=== PATIENT | male | born 1950 | race Caucasian/White ===

== ENCOUNTER → 2017-03-11 | Outpatient (CLI) | payer MEDICARE, BC | END | disposition home or self-care (01) | LOC: CFH 13:43 | PROVIDERS: ATTEND Internal Medicine Cardiovascular Disease | DX: I08.1 Rheumatic disorders of both mitral and tricuspid valves (principal); I48.0 Paroxysmal atrial fibrillation; I10 Essential (primary) hypertension; E78.5 Hyperlipidemia, unspecified | CPT/HCPCS: 93306 ==

== ENCOUNTER → 2018-03-17 | Outpatient (CLI) | payer MEDICARE, BC | LOC: CVU 14:52 | PROVIDERS: ATTEND Internal Medicine Cardiovascular Disease | DX: I51.7 Cardiomegaly (principal); I71.9 Aortic aneurysm of unspecified site, without rupture | CPT/HCPCS: 93306 ==

== ENCOUNTER → 2019-03-23 | Outpatient (CLI) | payer MEDICARE, BC | END | disposition home or self-care (01) | LOC: CFH 09:41 | PROVIDERS: ATTEND Internal Medicine Cardiovascular Disease | DX: I08.0 Rheumatic disorders of both mitral and aortic valves (principal); I48.0 Paroxysmal atrial fibrillation; I71.9 Aortic aneurysm of unspecified site, without rupture; I10 Essential (primary) hypertension; E78.5 Hyperlipidemia, unspecified | CPT/HCPCS: 93306 ==

== ENCOUNTER → 2020-04-25 | Outpatient (CLI) | payer MEDICARE, BC | END | disposition home or self-care (01) | LOC: CFH 10:06 | PROVIDERS: ATTEND Internal Medicine Cardiovascular Disease | DX: I35.8 Other nonrheumatic aortic valve disorders (principal); I71.9 Aortic aneurysm of unspecified site, without rupture | CPT/HCPCS: 93306 ==

== ENCOUNTER → 2021-05-17 | Outpatient (CLI) | payer MEDICARE, BC ==
[~2021-05-17] MED LIST: ATOR20TA PO; FINA5TAB4 PO; Fish oil PO; LOSA25TA25 PO; OMNIPAQUE 350 MG/ML, 150 ML BOTTLE ONE; SILO8CAP6 PO
== END | disposition home or self-care (01) ==
LOC: CFH 14:16
PROVIDERS: ATTEND Internal Medicine Cardiovascular Disease
DX: I48.0 Paroxysmal atrial fibrillation (principal); I71.9 Aortic aneurysm of unspecified site, without rupture; R00.1 Bradycardia, unspecified
CPT/HCPCS: 71046; 75572; Q9967

== ENCOUNTER 2021-05-19 10:14 | Observation (INO) | payer MEDICARE, BC ==
[~2021-05-19] VITALS: Ht 182.9 cm; Wt 85.2 kg
[2021-05-19 11:42] VITALS: BP 155/86
[2021-05-19] MEDS ORDERED: FENTANYL PF 250 MCG/5ML ONE (11:43)
[2021-05-19] MEDS ORDERED: MIDAZOLAM 1 MG/ML, 2ML ONE (11:43)
[2021-05-19] MEDS ORDERED: FINA5TAB4 PO (11:48)
[2021-05-19] MEDS ORDERED: ATOR20TA PO (11:48)
[2021-05-19] MEDS ORDERED: LOSA25TA25 PO (11:48)
[2021-05-19] MEDS ORDERED: SILO8CAP6 PO (11:48)
[2021-05-19] MEDS ORDERED: Fish oil PO (11:48)
[2021-05-19] MEDS ORDERED: EPHEDRINE 50 MG/ML, 1ML ONE (11:57)
[2021-05-19] MEDS ORDERED: PROPOFOL 10 MG/ML, 20ML ONE (11:57)
[2021-05-19] MEDS ORDERED: ONDANSETRON 2MG/ML, 2ML ONE (11:57)
[2021-05-19] MEDS ORDERED: ROCURONIUM 10 MG/ML,10ML ONE (11:57)
[2021-05-19] MEDS ORDERED: DEXAMETHASONE 4 MG/ML, 1ML ONE (11:57)
[2021-05-19] MEDS ORDERED: SODIUM CHLORIDE 0.9% 1,000 ML IV SCH ×2 (12:00)
[2021-05-19 12:08] LABS: INTERNATIONAL NORMALIZED RATIO 1.04 (0.93-1.1); PROTHROMBIN TIME 11.1 Seconds (9.6-11.5)
[2021-05-19] MEDS ORDERED: LIDOCAINE 1%, 20ML ONE (12:21)
[2021-05-19] MEDS ORDERED: HEPARIN 1,000 UNITS/ML, 10ML ONE ×3 (13:08→13:34)
[2021-05-19] MEDS ORDERED: ACETAMINOPHEN 325 MG TABLET PO PRN ×2 (14:30→15:00)
[2021-05-19] MEDS ORDERED: ZOLPIDEM 5MG TABLET PO PRN (14:30)
[2021-05-19] MEDS ORDERED: ONDANSETRON 2MG/ML, 2ML IVPush PRN ×2 (14:30→15:00)
[2021-05-19] MEDS ORDERED: MEPERIDINE/PF 25MG/0.5ML IVPush PRN (15:00)
[2021-05-19] MEDS ORDERED: DIPHENHYDRAMINE 50 MG/ML, 1ML IVPush PRN ×2 (15:00)
[2021-05-19] MEDS ORDERED: LORazepam 2 MG/ML, 1ML IVPush PRN (15:00)
[2021-05-19] MEDS ORDERED: hydrALAzine 20 MG/ML, 1ML IV PRN (15:00)
[2021-05-19] MEDS ORDERED: FENTANYL PF 100 MCG/2ML IV PRN (15:00)
[2021-05-19] MEDS ORDERED: HYDROmorphone 1 MG/ML, 1ML INJ IVPush PRN (15:00)
[2021-05-19] MEDS ORDERED: EPHEDRINE 50 MG/ML, 1ML IVPush PRN (15:00)
[2021-05-19] MEDS ORDERED: PROMETHAZINE 12.5 MG SUPP PR PRN (15:00)
[2021-05-19] MEDS ORDERED: DIAZEPAM 5 MG/ML, 2ML IVPush PRN (15:00)
[2021-05-19] MEDS ORDERED: LABETALOL 5MG/ML, 20ML IV PRN (15:00)
[2021-05-19] MEDS ORDERED: OXYcodone 5 MG/5 ML ORAL.SOL UDC PO PRN (15:00)
[2021-05-19] MEDS ORDERED: MIDAZOLAM 1 MG/ML, 2ML IV PRN (15:00)
[2021-05-19] MEDS ORDERED: ALBUTEROL SULFATE 2.5 MG/3 ML NPPB PRN (15:00)
[2021-05-19] MEDS ORDERED: PROMETHAZINE 25 MG/ML, 1ML IVPush PRN (15:00)
[2021-05-19] MEDS: APIXABAN 5 MG TABLET PO SCH (15:30)
[2021-05-19] MEDS ORDERED: APIXABAN 5 MG TABLET ONE (15:32)
[2021-05-19 16:20] VITALS: BP 115/67
[2021-05-19] MEDS ORDERED: APIXABAN 5 MG TABLET PO SCH (16:21)
[2021-05-19 18:17] VITALS: BP 125/72
[2021-05-19] MEDS: COLCHICINE 0.6 MG CAPSULE PO SCH ×2 (20:42→20:44)
[2021-05-19] MEDS ORDERED: APIXABAN 5 MG TABLET PO ONE (21:00)
[2021-05-19] MEDS ORDERED: ATORVASTATIN 20 MG TABLET PO SCH (21:00)
[2021-05-20 01:44] VITALS: BP 112/66
[2021-05-20 07:28] VITALS: BP 120/53
[2021-05-20] MEDS: APIXABAN 5 MG TABLET PO SCH (08:44)
[2021-05-20] MEDS: COLCHICINE 0.6 MG CAPSULE PO SCH (08:45)
[2021-05-20] MEDS ORDERED: Silodosin 8 MG HOMEMEDPO SCH (09:00)
[2021-05-20] MEDS ORDERED: FINASTERIDE 5 MG TABLET PO SCH (09:00)
[2021-05-20] MEDS ORDERED: LOSARTAN 25MG TABLET PO SCH (09:00)
[2021-05-20] MEDS ORDERED: COLC0.6C3 PO (10:37)
[2021-05-20] MEDS ORDERED: APIX5TAB PO (10:37)
== END 2021-05-20 11:57 | disposition home or self-care (01) ==
LOC: CACL 10:14 → ORIP 14:24 → 5SO 16:14
PROVIDERS: ADMIT Internal Medicine Cardiovascular Disease; ATTEND Internal Medicine Cardiovascular Disease
DX: I48.0 Paroxysmal atrial fibrillation (principal); Z20.822 Contact with and (suspected) exposure to COVID-19; E78.5 Hyperlipidemia, unspecified; I10 Essential (primary) hypertension; F10.10 Alcohol abuse, uncomplicated; Z79.899 Other long term (current) drug therapy
CPT/HCPCS: 36415; 85347; 85610; 93306; 93312; 93321; 93325; 93613; 93656; 93657; 93662; C1730; C1732; C1759; C1766; C1893; C1894; G0378; J1100; J1644; J2250; J2405; J2704; J3010; J3490; U0005; U0003